=== PATIENT | female | born 1965 | race Two or more races ===

== ENCOUNTER → 2023-12-20 10:40 | Outpatient (REF) | payer OTHER, SELFPAY | LOC: WDC 10:40 | PROVIDERS: ATTENDING PHYSICIAN Internal Medicine | DX: R06.2 Wheezing (principal); J45.20 Mild intermittent asthma, uncomplicated; Z12.31 Encounter for screening mammogram for malignant neoplasm of breast | CPT/HCPCS: 71046; 77063; 77067 ==

== ENCOUNTER → 2024-01-28 07:33 | Outpatient (REF) | payer OTHER, SELFPAY | LOC: EMG 07:33 | PROVIDERS: ATTENDING PHYSICIAN Internal Medicine | DX: R20.0 Anesthesia of skin (principal); R20.2 Paresthesia of skin | CPT/HCPCS: 95886; 95911 ==

== ENCOUNTER → 2024-02-25 08:28 | Outpatient (REF) | payer OTHER, SELFPAY | LOC: HWRAD 08:28 | PROVIDERS: ATTENDING PHYSICIAN Internal Medicine | DX: M81.0 Age-related osteoporosis without current pathological fracture (principal) | CPT/HCPCS: 77080 ==

== ENCOUNTER → 2025-01-19 07:10 | Outpatient (REF) | payer OTHER, SELFPAY | LOC: HWWDC 07:10 | PROVIDERS: ATTENDING PHYSICIAN Internal Medicine | DX: Z12.31 Encounter for screening mammogram for malignant neoplasm of breast (principal) | CPT/HCPCS: 77063; 77067 ==

== ENCOUNTER → 2025-06-01 11:26 | Outpatient (REF) | payer OTHER, SELFPAY | LOC: WDC 11:26 | PROVIDERS: ATTENDING PHYSICIAN Internal Medicine | DX: R92.2 Inconclusive mammogram (principal) | CPT/HCPCS: 76641 ==

== ENCOUNTER → 2025-07-11 14:23 | Outpatient (REF) | payer OTHER, SELFPAY | LOC: HWRAD 14:23 | PROVIDERS: ATTENDING PHYSICIAN Internal Medicine | DX: R06.2 Wheezing (principal); R06.02 Shortness of breath; J06.9 Acute upper respiratory infection, unspecified | CPT/HCPCS: 71046 ==